=== PATIENT | female | born 1995 | race Caucasian/White ===

== ENCOUNTER → 2017-02-16 | Outpatient (CLI) | payer OTHER ==
[~2017-02-16] MED LIST: BNT10 PO; IBUP-1428 PO; MEDR10TA PO; ONDA4TAB7 SL
--- NOTE | 2017-02-16 17:00 | ECHOCARDIOGRAM REPORT ---
*NOTICE TO RECEIVING CONSTITUTION PARTY AGENCY This information is strictly Confidential and protected under [place] law. [place] law prohibits you from making any further disclosure of this information unless further disclosure is expressly permitted by the written consent of the person to whom it pertains or is authorized by law. A general authorization for the release of medical or other information is not sufficient for this purpose. Hospital accepts no responsibility if the information is made available to any other person, INCLUDING THE PATIENT. Interpretation Summary * Name: JOSE DANIEL GROSS Study Date: 02/16/2017 01:36 PM BP: 149/55 mmHg * Patient Location: [facility] HR: 87 * : 1995 (M/d/yyyy) Gender: Female * Age: 21 yrs Ethnicity: [place] * Ordering Physician: SANDRA DIEGO DO * Performed By: Yumi Fortune * * Reason For Study: PALPITATIONS, SOB * -- Conclusions -- * 1. Normal LV size and wall thickness. * 2. Normal LV systolic function. LVEF 55-60%. No regional wall motion abnormalities. * 3. Normal RV size and function. * 4. Mild RA dilation. * 5. Trace MR, PI, TR. * 6. Normal estimated RA and PA pressures. * 7. No prior studies for comparison. Procedure Details * A complete two-dimensional transthoracic echocardiogram was performed (2D, M-mode, Doppler and color flow Doppler). Left Ventricle * The left ventricle is grossly normal size. * There is normal left ventricular wall thickness. * Ejection Fraction = 55-60%. * No regional wall motion abnormalities noted. Right Ventricle * The right ventricle is grossly normal size. * The right ventricular systolic function is normal as assessed by tricuspid annular plane systolic excursion (TAPSE) (normal >1.5 cm). Atria * The left atrial size is normal. * The right atrium is mildly dilated. * No ASD detected; PFO is not assessed. Mitral Valve * The mitral valve is grossly normal. * Mitral stenosis is absent. * There is trace mitral regurgitation. Tricuspid Valve * The tricuspid valve is not well visualized, but is grossly normal. * There is trace tricuspid regurgitation. Aortic Valve * The aortic valve opens well. * The aortic valve is trileaflet. * No hemodynamically significant valvular aortic stenosis. * There is no significant aortic regurgitation. Pulmonic Valve * The pulmonary valve is inadequately visualized, but the Doppler data is adequate for interpretation. * Pulmonic stenosis is absent. * Trace pulmonic valvular regurgitation. Great Vessels * The aortic root and proximal ascending aorta are normal sized. * No Doppler or imaging evidence of an aortic coarctation. Pericardium/Pleural * There is no pericardial effusion. Great Vessels * Normal inferior vena cava size and collapsability with sniff indicates a normal right atrial pressure of 3 mmHg Left Ventricular Diastolic Function * No diastolic dysfunction MMode 2D Measurements and Calculations IVSd 0.83 cm IVSs 1.1 cm LVIDd 5.1 cm LVIDs 3.5 cm LVPWd 10 cm LVPWs 1.5 cm IVS/LVPW 0.83 FS 31.3 % EDV(Teich) 121.7 ml ESV(Teich) 50.1 ml EF(Teich) 58.8 % EDV(cubed) 129.7 ml ESV(cubed) 42.1 ml EF(cubed) 67.6 % % IVS thick 31.8 % % LVPW thick 53.6 % LV mass(C)d 165.4 grams LV mass(C)s 155.4 grams SV(Teich) 71.6 ml SV(cubed) 87.7 ml ACS 1.4 cm LA dimension 3.5 cm asc Aorta Diam 2.4 cm LVOT diam 2.0 cm LVOT area 3.2 cm\S\2 LVAd ap4 31.0 cm\S\2 LVLd ap4 8.4 cm EDV(MOD-sp4) 94.8 ml EDV(sp4-el) 96.6 ml LVAs ap4 17.5 cm\S\2 LVLs ap4 6.5 cm ESV(MOD-sp4) 39.5 ml ESV(sp4-el) 40.0 ml EF(MOD-sp4) 58.3 % EF(sp4-el) 58.6 % LVAd ap2 23.0 cm\S\2 LVLd ap2 6.7 cm EDV(MOD-sp2) 70.5 ml EDV(sp2-el) 66.6 ml LVAs ap2 13.2 cm\S\2 LVLs ap2 5.2 cm ESV(MOD-sp2) 28.5 ml ESV(sp2-el) 28.4 ml EF(MOD-sp2) 59.5 % EF(sp2-el) 57.4 % LVLd %diff -25.26 % EDV(MOD-bp) 91.2 ml LVLs %diff -24.61 % ESV(MOD-bp) 37.0 ml EF(MOD-bp) 59.4 % SV(MOD-sp4) 55.3 ml SV(MOD-sp2) 41.9 ml SV(MOD-bp) 54.2 ml SV(sp4-el) 56.6 ml SV(sp2-el) 38.2 ml Doppler Measurements and Calculations MV E max yudi 75.0 cm/sec MV A max yudi 30.2 cm/sec MV E/A 2.5 MV dec time 0.26 sec Ao V2 max 141.2 cm/sec Ao max PG 8.0 mmHg Ao max PG (full) 4.7 mmHg CHULA(V,A) 2.1 cm\S\2 CHULA(V,D) 2.1 cm\S\2 LV V1 max PG 3.3 mmHg LV V1 max 90.2 cm/sec PA V2 max 83.6 cm/sec PA max PG 2.8 mmHg TR max yudi 201.3 cm/sec
--- NOTE | 2017-02-18 10:27 | PULMONARY FUNCTION TEST ---
SPIROMETRY/READING BASED OFF OF ATS CRITERIA SPIROMETRY: Within normal limits. LUNG VOLUMES: Within normal limits. INTERPRETATION: Normal spirometry and lung volumes.
== END | disposition home or self-care (01) ==
LOC: C.CPL 13:07
PROVIDERS: ATTEND Family Medicine
DX: R06.02 Shortness of breath (principal); R00.2 Palpitations

== ENCOUNTER → 2017-02-19 | Outpatient (CLI) | payer OTHER ==
[~2017-02-19] MED LIST changes: +OPTIRAY 320 IV PRN
--- NOTE | 2017-02-19 15:15 | DIAGNOSTIC IMAGING REPORT ---
CT ANGIOGRAM OF THE CHEST CLINICAL HISTORY: Dyspnea. COMPARISON STUDY: Chest x-ray dated 01/01/2015. TECHNIQUE: Following the IV administration of 94 cc of Optiray 320, CT angiogram of the chest was performed from the upper abdomen to the thoracic inlet utilizing the pulmonary embolus protocol. Images are reviewed in the axial, sagittal, and coronal planes. 3-D MIPS images are created and assessed. IV contrast was administered without complication. CT DOSE: 406.66 mGycm FINDINGS: Thyroid: Imaged portions of the thyroid gland are normal in size and attenuation. Thoracic aorta: The thoracic aorta is normal in caliber and demonstrates standard 3-vessel arch anatomy. No dissection is seen. Pulmonary vasculature: The pulmonary trunk is normal in caliber. There are no filling defects identified in main, lobar, or segmental pulmonary branches to suggest pulmonary embolus. Heart: The heart is normal in size and configuration, and without pericardial effusion. Lungs and pleural spaces: The lungs and pleural spaces are clear. Mediastinum: There is no mediastinal lymphadenopathy. Gladys: Clear. Axillae: There is no axillary lymphadenopathy. Upper abdomen: Partially visualized upper abdominal viscera is within normal limits. Skeletal structures: No lytic or blastic bony lesions are seen. IMPRESSION: 1. There is no evidence of pulmonary embolus in the main, lobar, or segmental pulmonary arteries. 2. The lungs are clear. Electronically signed by: Jax Christian M.D. 02/19/2017 3:14 PM Dictated Date/Time: 02/19/2017 3:12 PM
== END | disposition home or self-care (01) ==
LOC: C.CTS 14:34
PROVIDERS: ATTEND Family Medicine
DX: R06.02 Shortness of breath (principal)

== ENCOUNTER → 2017-05-27 | Outpatient (CLI) | payer OTHER ==
[~2017-05-27] MED LIST changes: -OPTIRAY 320 IV PRN
== END | disposition home or self-care (01) ==
LOC: C.PAPS 14:30
PROVIDERS: ATTEND Obstetrics & Gynecology
DX: Z12.4 Encounter for screening for malignant neoplasm of cervix (principal)